=== PATIENT | male | born 1965 | race Caucasian/White ===

== ENCOUNTER → 2020-10-18 09:12 | Outpatient (CLI) | payer OTHER, SELFPAY ==
[2020-10-18 19:01] LABS: Add Manual Diff / Slide Review NO; Basophils Absolute Auto 0 /uL (0-100); Basophils Percent Auto 0.5 % (0-2); Eosinophils Absolute Auto 100 /uL (0-450); Eosinophils Percent Auto 1.5 % (2-4); Hematocrit 42.5 % (41-53); Hemoglobin 13.8 g/dL (13.5-17.5); Lymphocytes Absolute Auto 2100 /uL (1100-4500); Lymphocytes Percent Auto 32.9 % (25-40); Mean Corpuscular HGB Conc 32.5 % (30-36); Mean Corpuscular Hemoglobin 28.3 PG (26-34); Mean Corpuscular Volume 87.1 fL (80-100); Monocytes Absolute Auto 600 /uL (0-900); Monocytes Percent Auto 8.8 % (3-14); Neutrophils Absolute Auto 3600 /uL (1500-7000); Neutrophils Percent Auto 56.3 % (50-75); Platelet Count 261 X10^3/uL (150-400); Red Blood Cell Count 4.88 X10^6/uL (4.5-5.9); Red Cell Distribution Width 13.5 % (11.6-14.8); White Blood Cell Count 6.4 X10^3/uL (4.5-11.0)
[2020-10-18 19:05] LABS: Alanine Aminotransferase 27 IU/L (<50); Albumin 4.5 g/dL (3.5-5.0); Albumin Globulin Ratio 1.3 (1.0-2.8); Alkaline Phosphatase 61 U/L (38-126); Aspartate Aminotransferase 35 IU/L (17-59); BUN Creatinine Ratio 21.7 (6-22); Bilirubin Total 0.4 mg/dL (0.2-1.3); Blood Urea Nitrogen 18 mg/dL (9-20); Calcium 10.1 mg/dL (8.4-10.2); Carbon Dioxide 31 mmol/L (22-32); Chloride 102 mmol/L (98-107); Cholesterol 276 mg/dL (140-199); Estimated Glomerular Filt Rate > 60.0 mL/min (>60); Globulin 3.4 g/dL (1.7-4.1); Glucose 88 mg/dL (70-100); HDL Cholesterol 60 mg/dL (40-60); HEMOLYSIS < 15 (0-50); LDL Cholesterol Calculated 185 mg/dL (<100); Potassium 4.5 mmol/L (3.4-5.1); Sodium 140 mmol/L (137-145); Total Protein 7.9 g/dL (6.3-8.2); Triglycerides 156 mg/dL (35-150)
[2020-10-18 19:47] LABS: C-Reactive Protein Quant < 0.5 mg/dL (<1.0)
== END ==
PROVIDERS: PCP Family Medicine; Visit Provider Family Medicine
DX: E78.5 Hyperlipidemia, unspecified (principal); R59.9 Enlarged lymph nodes, unspecified
CPT/HCPCS: 80053; 80061; 85025; 86140

== ENCOUNTER → 2020-10-24 14:04 | Outpatient (CLI) | payer OTHER, SELFPAY ==
--- NOTE | 2020-10-24 14:06 | DI.US.S_ITS ---
PROCEDURE: US ABDOMEN LIMITED INDICATIONS: Enlarged lymph in groin left side with sonographic evaluation directed to the area of current clinical concern, by the patient. TECHNIQUE: Real-time focused scanning was performed of the abdomen, with image documentation. COMPARISON: None. FINDINGS: The patient concern for possible lymphadenopathy the resulted in him requesting that his spleen be evaluated briefly by ultrasound and the spleen is found to be normal in craniocaudad length and echotexture, measuring up to 10.2 cm in length within normal overall volume. The patient also reports feeling a mass as his left inguinal area and this area of clinical concern was evaluated. There is a left inguinal lymph node at the site measuring 1.1 x 0.4 x 0.4 cm. This also appears to represent a normal structure, a normal-sized lymph node. Several additional scattered normal appearing lymph nodes are seen in the left groin area. IMPRESSION: Benign appearing normal size spleen, benign appearing normal-sized left inguinal lymph nodes. Dictated by: Ike Nava M.D. on 10/25/2020 at 10:23 Approved by: Ike Nava M.D. on 10/25/2020 at 10:25
--- NOTE | 2020-10-24 14:06 | DI.US.S_ITS ---
PROCEDURE: US SOFT TISSUE HEAD AND NECK INDICATIONS: Left cervical and axillary nodes, several identified by the patient to assist in sonographic evaluation TECHNIQUE: Real-time scanning was performed of the neck region of interest, with image documentation. COMPARISON: None. FINDINGS: At the lateral superficial neck in the area pointed 2 by the patient there is a 1.0 by 0.3 presumed subcutaneous lymph node. Additional normal-sized lymph nodes are seen in this general area deeper to the skin surface. Additionally, there is a identifiable area by the patient adjacent to the posterior humeral head which is not at the axilla but was initially described as such. It measures 2 x 7 mm, likely an at additional superficial lymph node. IMPRESSION: The patient was able to direct sonographic evaluation to areas of clinical concern previously identified. What appears to be superficial small lymph nodes are present in these areas, no enlarged lymph nodes or cystic or malignant-appearing solid masses are found. Continued clinical follow-up is recommended and if clinical concerns persist or increase than MR scanning of the areas of concern with contrast would be recommended. No enlarged lymph nodes are found. Dictated by: Ike Nava M.D. on 10/25/2020 at 10:17 Approved by: Ike Nava M.D. on 10/25/2020 at 10:22
== END ==
PROVIDERS: PCP Family Medicine; Referring Provider Family Medicine; Visit Provider Family Medicine
DX: R59.9 Enlarged lymph nodes, unspecified (principal)
CPT/HCPCS: 76536; 76705

== ENCOUNTER → 2020-11-18 10:19 | Outpatient (CLI) | payer OTHER, SELFPAY ==
[2020-11-18 10:59] LABS: C-Reactive Protein Quant < 0.5 mg/dL (<1.0)
[2020-11-18 11:27] LABS: Prostate Specific Antigen Scrn 1.91 ng/mL (0.1-4.0)
[2020-11-18 11:57] LABS: TSH w/ Reflex to FT4 1.23 uIU/mL (0.47-4.68)
== END ==
PROVIDERS: PCP Family Medicine; Referring Provider Physician Assistant Medical; Visit Provider Physician Assistant Medical
DX: Z12.5 Encounter for screening for malignant neoplasm of prostate (principal); R20.2 Paresthesia of skin; R53.83 Other fatigue; R59.9 Enlarged lymph nodes, unspecified; R63.4 Abnormal weight loss; Z12.6 Encounter for screening for malignant neoplasm of bladder; M23.206 Derangement of unspecified meniscus due to old tear or injury, right knee
CPT/HCPCS: 36415; 84443; 86140; G0103

== ENCOUNTER → 2021-01-01 10:47 | Outpatient (CLI) | payer OTHER, SELFPAY ==
[2021-01-01 19:39] LABS: Bacteria Urine None Seen; RBC Urine None Seen (0-5/HPF); WBC Urine None Seen (0-5/HPF)
[2021-01-01 19:44] LABS: Appearance Urine UA CLEAR; Bilirubin Urine UA NEGATIVE (NEGATIVE); Color Urine UA YELLOW; Glucose Urine UA NEGATIVE (Negative); Ketones Urine UA NEGATIVE (NEGATIVE); Leukocyte Esterase Urine UA NEGATIVE (NEGATIVE); Nitrite Urine UA NEGATIVE (Negative); Occult Blood Urine UA NEGATIVE (Negative); Protein Urine UA NEGATIVE (Negative); Specific Gravity Urine UA 1.015 (1.000-1.035); Urobilinogen Urine UA 0.2 E.U./dL (0.2)
[2021-01-01 19:51] LABS: Culture Indicated Urine Cult Not Indicated; Urine Comments Microscopic Normal
== END ==
PROVIDERS: PCP Family Medicine; Visit Provider Physician Assistant Medical
DX: M23.206 Derangement of unspecified meniscus due to old tear or injury, right knee (principal); R20.2 Paresthesia of skin; R53.83 Other fatigue; R59.9 Enlarged lymph nodes, unspecified; R63.4 Abnormal weight loss; Z12.5 Encounter for screening for malignant neoplasm of prostate; Z12.6 Encounter for screening for malignant neoplasm of bladder
CPT/HCPCS: 81001

== ENCOUNTER → 2024-04-15 14:02 | Outpatient (CLI) | payer OTHER, SELFPAY ==
[2024-04-15 15:32] LABS: Prostate Specific Antigen 3.58 ng/mL (0.10-4.00)
== END ==
PROVIDERS: Referring Provider Urology; Visit Provider Urology
DX: R97.20 Elevated prostate specific antigen [PSA] (principal)
CPT/HCPCS: 36415; 84153

== ENCOUNTER → 2024-05-03 10:44 | Outpatient (CLI) | payer OTHER, SELFPAY ==
[2024-05-03 12:35] LABS: Alanine Aminotransferase 29 IU/L (<50); Albumin 4.5 g/dL (3.5-5.0); Albumin Globulin Ratio 1.6 (1.0-2.8); Alkaline Phosphatase 66 U/L (38-126); Aspartate Aminotransferase 35 IU/L (17-59); Bilirubin Total 0.5 mg/dL (0.2-1.3); Bilirubin Unconjugated 0.2 mg/dL (0.0-1.1); Cholesterol 155 mg/dL (140-199); Globulin 2.9 g/dL (1.7-4.1); HDL Cholesterol 54 mg/dL (40-60); HEMOLYSIS < 15 (0-50); LDL Cholesterol Calculated 79 mg/dL (<100); Total Protein 7.4 g/dL (6.3-8.2); Triglycerides 110 mg/dL (35-150)
== END ==
LOC: LAB 10:49
DX: E78.00 Pure hypercholesterolemia, unspecified (principal)
CPT/HCPCS: 36415; 80061; 80076